=== PATIENT | male | born 1995 | race Caucasian/White ===

== ENCOUNTER 2018-08-16 03:35 | Inpatient (IN) ==
[2018-08-16] MEDS ORDERED: LORazepam 1 MG TAB SL STA (04:00)
--- NOTE | 2018-08-16 04:07 | Emergency Department Note ---
ED Provider Note Name: Heath Hoang Age: 23 M Arrives Via: Police Informant: Pt, Police CC: Suicidal Ideation HPI: 23 male arrives for evaluation of suicidal ideation. Patient with several months/years of depression/anxiety. Notes things have worsened due to school issues and failing classes. He was to have a test this Tuesday, which if he does not pass he will not be able to graduate in his major. He is sure the test will go poorly. He has been thinking over various ways of killing himself this evening. Stabbing, walking in to traffic or taking pills kept running through his mind. He was afraid to get out of his bed for fear he may kill himself. He called [facility] and told this to them. Arrived with police after discussing at length with them. He denies attempt at harming self. Admits having vague thoughts for years regarding suicide. Started on Wellbutrin last month which he thinks has improved his mood overall, but he still periodically has deep bouts of sadness. Denies recent ETOH, drug nor other substance use. He has taken no medications this evening. Nothing makes symptoms better nor worse. Denies medical issues today. ROS: See above HPI for pertinent positives & negatives. A total of 10 systems reviewed and were otherwise negative. Past Medical History: Depression Past Surgical History: [place] Teeth, Colonoscopy Family History: Distant cousin committed suicide. Denies knowing further family history Social History: Occasional ETOH/Marijuana, Denies drug/smoking use otherwise. Student. From [employer]. Home Medications: Wellbutrin Allergies Azithromycin Physical: Vitals: BP 154/94, P 82, R 20, T 36.5, O2 99% Exam: GENERAL: Patient is sad appearing and in mild distress. Crying periodically EYES: No scleral icterus, unremarkable pupils. ENT: Mucous membranes moist, no nasal congestion. NECK: No masses appreciated, no meningismus, trachea is midline. RESPIRATORY: No dyspnea. Clear to auscultation and equal bilaterally. No wheeze, no rhonchi. CARDIOVASCULAR: Regular rate and rhythm. No murmurs, rubs, gallops appreciated. GASTROINTESTINAL: Abdomen soft, non-tender, no peritonitis. Bowel sounds positive. No masses appreciated. BACK: No midline tenderness, no CVA tenderness EXTREMITIES: Normal motion all extremities, no cyanosis, no edema. NEUROLOGIC: Alert and oriented, no acute motor or sensory deficits, no focal weakness, cranial nerves grossly intact. SKIN: No rash, no jaundice, no diaphoresis. PSYCH: Sad, depressed, crying. Admits suicidal ideation with plan ED Course: Prior Medical Record, Triage/Nursing Notes, Medications, Allergies reviewed by Me Vital Signs: reviewed and remarkable for HTN Labs: Reviewed and remarkable for wnl mental health clearance labs Interventions: None Imaging: None EKG: None Consults: Mental Health Case Management agree with need for inpatient treatment Blood pressure: Normal. No Referral necessary Disposition: Admission to [address] [place] [address]. Differentials: Mood Disorder, Overdose, Infectious, Electrolyte Abnormality, Cardiac, Hepatic, Endocrine, Toxicologic, Neurologic, amongst other pathologies entertained. Medical Decision Makin yr old male clearly very depressed with multiple exacerbating factors in his life currently. Opened up considerably to Eliana from case management about his history as well. He clearly is very high risk suicide attempt. He is currently willing for inpatient treatment which I think is very necessary. He is medically clear. He freely signed 201 admission paperwork and thus I have denied 302 on reason he is actively participating in his care and willing to admit himself. Accepted to [address] [place] [address] for inpatient psychiatric treatment. Impression: Depression Suicidal Ideation Alex Small MD Impression & Plan Depression, Suicidal ideation Past Med/Surg History Social History Preferred Language: German Feels Safe at Home: Yes Smoking Status: Never smoker Results & Data Vital Signs Vital Signs - 24 hr 08/16/18 03:38 08/16/18 05:22 Temperature 36.5 C Temperature Source Oral Sepsis Recent Fever Within 48 Hours No Sepsis New/Unexplained Change in Mental Status No Sepsis Action Taken by Nursing No Action Required Pulse Rate 82 Pulse Rate [Finger] 64 Respiratory Rate 20 18 Blood Pressure 154/94 H Blood Pressure [Right Arm] 140/81 Blood Pressure Mean 114 Blood Pressure Mean [Right Arm] 100 Pulse Oximetry 99 99 Oxygen Delivery Method Room Air Laboratory Data Result diagrams: 08/16/18 04:06 08/16/18 04:06 Lab Results 08/16/18 08/16/18 08/16/18 Range/Units 03:47 03:47 04:06 WBC 5.51 (4.8-10.8) K/uL RBC 4.62 L (4.7-6.1) M/uL Hgb 14.6 (14.0-18.0) g/dL Hct 41.6 L (42-52) % MCV 90.0 (80-100) fL MCH 31.6 (25-34) pg MCHC 35.1 (32-36) g/dL RDW Std Deviation 38.6 (36.4-46.3) fL RDW Coeff of Brynn 11.8 (11.5-14.5) % Plt Count 227 (130-400) K/uL MPV 9.7 (7.4-10.4) fL Immature Gran % (Auto) 0.0 % Neut % (Auto) 55.4 % Lymph % (Auto) 26.1 % Taylor % (Auto) 15.4 % Eos % (Auto) 2.7 % Baso % (Auto) 0.4 % Immature Gran # (Auto) 0.00 (0.00-0.02) K/uL Neut # (Auto) 3.05 (1.4-6.5) K/uL Lymph # (Auto) 1.44 (1.2-3.4) K/uL Taylor # (Auto) 0.85 H (0.11-0.59) K/uL Eos # (Auto) 0.15 (0-0.5) K/uL Baso # (Auto) 0.02 (0-0.2) K/uL Sodium (136-145) mmol/L Potassium (3.5-5.1) mmol/L Chloride (98-107) mmol/L Carbon Dioxide (21-32) mmol/L Anion Gap (3-11) BUN (7-18) mg/dl Creatinine (0.6-1.4) mg/dl Est Cr Clr Drug Dosing ml/min Est GFR ( Amer) Est GFR (Non-Af Amer) BUN/Creatinine Ratio (10-20) Glucose (70-99) mg/dl Calcium (8.5-10.1) mg/dl Total Bilirubin (0.2-1) mg/dl AST (15-37) U/L ALT (12-78) U/L Alkaline Phosphatase (45-117) U/L Total Protein (6.4-8.2) gm/dl Albumin (3.4-5.0) gm/dl Globulin (2.5-4.0) gm/dl Albumin/Globulin Ratio (0.9-2) TSH (0.300-4.500) uIu/ml Urine Color Yellow Urine Appearance Clear (Clear) Urine pH 5.5 (4.5-7.5) Ur Specific [place] 1.023 (1.000-1.030) Urine Protein 1+ H (Negative) Urine Glucose (UA) Negative (Negative) Urine Ketones Negative (Negative) Urine Blood Negative (Negative) Urine Nitrite Negative (Negative) Urine Bilirubin Negative (Negative) Urine Urobilinogen Negative (Negative) Ur Leukocyte Esterase 1+ H (Negative) Urine WBC (Auto) >30 H (0-5) /hpf Urine RBC (Auto) 0-4 (0-4) /hpf U Hyaline Cast (Auto) 0 (0-5) /lpf U Epithel Cells (Auto) 0-5 (0-5) /lpf Urine Bacteria (Auto) 1+ H (Negative) Urine Mucus Present A (None Prsent) Urine Sperm Present A (None Prsent) Salicylates (2.8-20) mg/dl Urine Opiates Screen Neg (Neg) Ur Methadone, Qual Neg (Neg) Acetaminophen (10-30) ug/ml Urine Barbiturates Neg (Neg) Ur Phencyclidine (PCP) Neg (Neg) U Amphetamin/Meth Scrn Neg (Neg) MDMA (Ecstasy) Screen Pos H (Neg) U Benzodiazepines Scrn Neg (Neg) Ur Cocaine Metabolite Neg (Neg) U Marijuana (THC) Screen Neg (Neg) Ethyl Alcohol mg/dL (0-3) mg/dl 08/16/18 08/16/18 08/16/18 Range/Units 04:06 04:06 04:06 WBC (4.8-10.8) K/uL RBC (4.7-6.1) M/uL Hgb (14.0-18.0) g/dL Hct (42-52) % MCV (80-100) fL MCH (25-34) pg MCHC (32-36) g/dL RDW Std Deviation (36.4-46.3) fL RDW Coeff of Brynn (11.5-14.5) % Plt Count (130-400) K/uL MPV (7.4-10.4) fL Immature Gran % (Auto) % Neut % (Auto) % Lymph % (Auto) % Taylor % (Auto) % Eos % (Auto) % Baso % (Auto) % Immature Gran # (Auto) (0.00-0.02) K/uL Neut # (Auto) (1.4-6.5) K/uL Lymph # (Auto) (1.2-3.4) K/uL Taylor # (Auto) (0.11-0.59) K/uL Eos # (Auto) (0-0.5) K/uL Baso # (Auto) (0-0.2) K/uL Sodium 141 (136-145) mmol/L Potassium 3.7 (3.5-5.1) mmol/L Chloride 107 (98-107) mmol/L Carbon Dioxide 26 (21-32) mmol/L Anion Gap 8.0 (3-11) BUN 12 (7-18) mg/dl Creatinine 1.21 (0.6-1.4) mg/dl Est Cr Clr Drug Dosing 122.9 ml/min Est GFR ( Amer) 97.9 Est GFR (Non-Af Amer) 84.5 BUN/Creatinine Ratio 9.5 L (10-20) Glucose 96 (70-99) mg/dl Calcium 9.2 (8.5-10.1) mg/dl Total Bilirubin 0.4 (0.2-1) mg/dl AST 14 L (15-37) U/L ALT 34 (12-78) U/L Alkaline Phosphatase 65 (45-117) U/L Total Protein 7.6 (6.4-8.2) gm/dl Albumin 4.0 (3.4-5.0) gm/dl Globulin 3.6 (2.5-4.0) gm/dl Albumin/Globulin Ratio 1.1 (0.9-2) TSH 4.270 (0.300-4.500) uIu/ml Urine Color Urine Appearance (Clear) Urine pH (4.5-7.5) Ur Specific [place] (1.000-1.030) Urine Protein (Negative) Urine Glucose (UA) (Negative) Urine Ketones (Negative) Urine Blood (Negative) Urine Nitrite (Negative) Urine Bilirubin (Negative) Urine Urobilinogen (Negative) Ur Leukocyte Esterase (Negative) Urine WBC (Auto) (0-5) /hpf Urine RBC (Auto) (0-4) /hpf U Hyaline Cast (Auto) (0-5) /lpf U Epithel Cells (Auto) (0-5) /lpf Urine Bacteria (Auto) (Negative) Urine Mucus (None Prsent) Urine Sperm (None Prsent) Salicylates < 1.7 L (2.8-20) mg/dl Urine Opiates Screen (Neg) Ur Methadone, Qual (Neg) Acetaminophen < 2 L (10-30) ug/ml Urine Barbiturates (Neg) Ur Phencyclidine (PCP) (Neg) U Amphetamin/Meth Scrn (Neg) MDMA (Ecstasy) Screen (Neg) U Benzodiazepines Scrn (Neg) Ur Cocaine Metabolite (Neg) U Marijuana (THC) Screen (Neg) Ethyl Alcohol mg/dL < 3.0 (0-3) mg/dl Administered Medications Discontinued Medications Lorazepam (Ativan) 1 mg SL NOW STA Stop: 08/16/18 04:01 Last Admin: 08/16/18 04:10 Dose: 1 mg Documented by: [id number] Discharge Plan Visit Data Chief Complaint: Mental Health Evaluation Stated Complaint: SUICIDAL ED Provider: Alex Small Discharge Problem: Depression, Suicidal ideation Discharge Problem: Depression Qualifiers: Depression Type: major depressive disorder Major depression recurrence: recurrent Active/Remission status: currently active Major depression episode severity: severe Psychotic features: without psychotic features Qualified Code(s): F33.2 - Major depressive disorder, recurrent severe without psychotic features
[2018-08-16 04:12] LABS: Appearance Urine Clear (Clear); Bilirubin Urine Negative (Negative); Blood Urine Negative (Negative); Color Urine Yellow; Epithelial Cell Urine Auto 0-5 /lpf (0-5); Glucose Urine UA Negative (Negative); Ketones Urine Negative (Negative); Leukocyte Esterase Urine 1+ (Negative); Nitrite Urine Negative (Negative); Protein Urine 1+ (Negative); RBC Urine Automated 0-4 /hpf (0-4); Specific Gravity Urine 1.023 (1.000-1.030); Urobilinogen Urine Negative (Negative); WBC Urine Automated >30 /hpf (0-5); pH Urine 5.5 (4.5-7.5)
[2018-08-16 04:21] LABS: Basophils # (auto) 0.02 K/uL (0-0.2); Basophils % (auto) 0.4 %; Eosinophils # (auto) 0.15 K/uL (0-0.5); Eosinophils % (auto) 2.7 %; Hematocrit (blood only) 41.6 % (42-52); Hemoglobin 14.6 g/dL (14.0-18.0); Lymphocytes # (auto) 1.44 K/uL (1.2-3.4); Lymphocytes % (auto) 26.1 %; Mean Corpuscular Hgb Conc 35.1 g/dL (32-36); Mean Platelet Volume 9.7 fL (7.4-10.4); Monocytes # (auto) 0.85 K/uL (0.11-0.59); Monocytes % (auto) 15.4 %; Neutrophils # (auto) 3.05 K/uL (1.4-6.5); Neutrophils % (auto) 55.4 %; Platelet Count 227 K/uL (130-400); RDW Coefficient of Variation 11.8 % (11.5-14.5); RDW Standard Deviation 38.6 fL (36.4-46.3); Red Blood Count 4.62 M/uL (4.7-6.1); White Blood Count 5.51 K/uL (4.8-10.8)
[2018-08-16 04:34] LABS: Sperm Urine Present (None Prsent)
[2018-08-16 04:35] LABS: Mucus Urine Present (None Prsent)
[2018-08-16 04:37] LABS: Amphetamines+Metham, Urine Neg (Neg); Bacteria Urine Automated 1+ (Negative); Barbiturates, Urine Neg (Neg); Benzodiazepine, Urine Neg (Neg); Cast Urine Automated 0 /lpf (0-5); Cocaine, Urine Neg (Neg); MDMA (Ecstacy), Urine Pos (Neg); Methadone, Urine Neg (Neg); Opiate, Urine Neg (Neg); Phencyclidine, Urine Neg (Neg)
[2018-08-16 04:44] LABS: BUN Creatinine Ratio 9.5 (10-20); Calcium 9.2 mg/dl (8.5-10.1); Creatinine Clr Calc Pharmacy 122.9 ml/min; Est GFR (African American) 97.9; Est GFR (Non-African American) 84.5; Potassium 3.7 mmol/L (3.5-5.1)
[2018-08-16 04:47] LABS: Acetaminophen < 2 ug/ml (10-30); Salicylate < 1.7 mg/dl (2.8-20)
[2018-08-16 04:55] LABS: Albumin Globulin Ratio 1.1 (0.9-2); Bilirubin,Total 0.4 mg/dl (0.2-1); Globulin 3.6 gm/dl (2.5-4.0); Total Protein 7.6 gm/dl (6.4-8.2)
[2018-08-16] MEDS ORDERED: BISMUTH SUBSALICYLATE PER ML OMNICELL CHARGE PO PRN (06:30)
[2018-08-16] MEDS ORDERED: SODIUM CHLORIDE 0.65% NA SOLN 45 ML (OCEAN) PRN (06:30)
[2018-08-16] MEDS ORDERED: ACETAMINOPHEN 325 MG TAB PO PRN (06:30)
[2018-08-16] MEDS ORDERED: MAGNESIUM HYDROXIDE SUSP 30 ML UDC PO PRN (06:30)
[2018-08-16] MEDS ORDERED: ALUMINUM/MAGNESIUM SUSP 30 ML UDC PO PRN (06:30)
[2018-08-16] MEDS ORDERED: buPROPion HCl 100 MG TABLET PO SCH (09:00)
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
[2018-08-16] MEDS: SERTRALINE HCL 50 MG TABLET PO SCH (13:52)
[2018-08-17] MEDS: BuPROPion XL 300 MG TABCR PO SCH (08:59)
[2018-08-17] MEDS: SERTRALINE HCL 50 MG TABLET PO SCH (08:59)
--- NOTE | 2018-08-17 19:08 | Psychiatric Progress Note ---
Date of Service August 17, 2018 Impression / Recommendations (1) Suicidal ideation: 08/16 -Continue inpatient treatment on a voluntary status. -Every 15 minute checks for safety. -Attend and participate in groups and therapy. Work on healthy coping skills and discharge safety plan. (2) Depression: 08/16 - Education provided re: diagnosis and recommended treatment, including medications and therapy. Continue bupropion 300mg daily, and add SSRI- sertrali ne 50mg daily - to target depression and anxiety. Reviewed risks, benefits and potential side effects. - Encourage family meeting - would be good to talk with mother as she has not been supportive of him getting treatment and he has been paying out of pocket for medications and therapy so that she would not have to pay for them, as he believes she would be angry about that. He fears she will be angry at him for being hospitalized, and may benefit form a meeting to discuss this with her with staff present. Long standing difficult relationship with her. Consider meeting with friend? He is not comfortable with disclosing his struggles to his friends, although does have good friends. - Coordinate with outpatient psychiatrist Dr. Sarah and therapist at [facility]. Recommend more frequent therapy - only scheduled every 3 weeks due to availability. - Explore ways to expand support network. 08/17 - encouraging family meeting with mother that pt is now seeming open to - need to further address roommate's gun to ensure if fully secured from pt's access -maintained Meds unchanged ,with room to raise Zoloft further as appropriate Inventory Assets Strengths: Willing for treatment, stable housing Needs: increased supports, safety plan Risk Factors Assessment Male: Yes : Yes Do You Have Access To A Gun?: No Health Problems: No Mental Health Diagnoses: Yes Substance Use Disorders: No Previous Attempt: No Family History of Suicide: No Previous Psychiatric Hospitalization: No Hopelessness: Yes Smoker: No Protective Factors Assessment : No Responsible for Young Children: No Employed: Yes Stable Relationships: Yes Supportive Family: No Good Rapport with Provider: Yes Interval History Chief Complaint "feelign better as I made a bunch of phone calls today". Review of Systems Sleep Information Total Hours of Sleep: 6 Sleep Comments: pt VIK @0500 and thereafter. pt remained in his room all shift. pt on q-15 minute checks Meal Information Percent Meal Consumed - Breakfast: 100 Percent Meal Consumed - Lunch: 90 Percent Meal Consumed - Dinner: 90 Nutrition Comment: per meal record Subjective Subjective Patient was seen & assessed and interval progress reviewed with nursing. Pt shared how made a bunch of phone calls today and left messages with peers and spoke to other peers, roommate brought some belonging and he got to speak to roommate and felt his concern and support. Pt had a better then expected phone call last evening with his mother and shared show she was notably less activated then he expected and in fact inquired if he wanted her to come to hospital instead of just charging here. He is more open to a family meeting (preferring by phone) with her now that he had that experience and after reviewing with grant writer. Pt had Si last night into this morning but did not have this afternoon. He feels he is tolerating his Meds and he feels they are likely alleviating factors. He has just started therapy at [facility] and is seeking more frequent therapy appts then has arranged to date, waning weekly if possible. He denied HI, He is feeling some improved sense of hope. he was weary about group therapy but after some groups here on the unit views group sessions more p ositively. he denied irritability or agitation. some insomnia last night. He thinks he would be ready for discharge in perhaps 2-3 days from now Physical Exam Psychiatric Orientation: alert, oriented x 3 and cooperative Apperance: appropriately dressed, appropriately groomed and appeared stated age Eye Contact: good eye contact Motor Behavior: steady gait and station and no abnormal motor movements decreased latency of speech with mild pressure to speech in anxious manner Affect: mood congruent with affect mood improving Thought Process: linear/logical thought process Thought Content: reality based without delusions Suicidal Thoughts: denies suicidal thoughts (this aftenroon but were present this morning and last night ) Homicidal Thoughts: denies homicidal thoughts Hallucinations: no auditory hallucinations and no visual hallucinations Cognition: recent memory grossly intact, remote memory grossly intact, attention grossly intact and language grossly intact Estimated Intelligence: consistent with education level Insight: good insight Judgement: good judgement Vital Signs (Past 24 Hours) Last Vital Signs Temp 36.6 C 08/17/18 06:44 Pulse 71 08/17/18 06:45 Resp 18 08/17/18 06:44 BP 134/81 08/17/18 06:45 Pulse Ox 99 08/16/18 05:22 Results & Data Current Inpatient Medications Current Inpatient Medications: Current Inpatient Medications Acetaminophen (Tylenol) 650 mg PO Q4H PRN PRN Reason: Headache or Minor Fever Stop: 09/15/18 06:29 Al Hydrox/Mg Hydrox/Simethicone (Maalox) 30 ml PO Q4H PRN PRN Reason: GI Upset Stop: 09/15/18 06:29 Bismuth Subsalicylate (Kaopectate) 15 ml PO PRN PRN PRN Reason: Loose Stool Stop: 09/15/18 06:29 Bupropion HCl (Wellbutrin-Xl) 300 mg PO QAM TMAICA Stop: 09/16/18 08:59 Last Admin: 08/17/18 08:59 Dose: 300 mg Documented by: Hydroxyzine HCl (Vistaril) 50 mg PO HSZ PRN PRN Reason: Insomnia Stop: 09/15/18 06:29 Hydroxyzine HCl (Vistaril) 25 mg PO Q4H PRN PRN Reason: Anxiety Stop: 09/15/18 06:29 Magnesium Hydroxide (Milk Of Magnesia) 30 ml PO DAILY PRN PRN Reason: Heartburn Stop: 09/15/18 06:29 Sertraline HCl (Zoloft) 50 mg PO QAM TAMICA Stop: 09/15/18 12:29 Last Admin: 08/17/18 08:59 Dose: 50 mg Documented by: Sodium Chloride ([place] Nasal) 1 - 2 sprays NA PRN PRN PRN Reason: Nasal Dryness/Congestion Stop: 09/15/18 06:29 Mental Health & Subst Abuse Tx Therapist Name of Therapist: [facility] Date of Therapist Appointment: 08/23/18 Merchandise Marker Name of Merchandise Marker: None Post Discharge Appointments Primary Care Physician Name Of Family Doctor: [facility] CPT Code CPT Code 58117 (1) Depression Active/Remission status: currently active Depression Type: major depressive disorder Major depression episode severity: severe Major depression recurrence : recurrent Psychotic features: without psychotic features Qualified Code(s): F33.2 - Major depressive disorder, recurrent severe without psychotic features
[2018-08-18] MEDS: BuPROPion XL 300 MG TABCR PO SCH (09:50)
[2018-08-18] MEDS: SERTRALINE HCL 50 MG TABLET PO SCH (09:51)
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
[2018-08-19] MEDS ORDERED: SERTRALINE HCL 50 MG TABLET PO SCH (09:00)
== END 2018-08-18 16:00 | disposition home or self-care (01) | DRG 885 ==
LOC: ED 03:35 → 3S 06:30
DX: Z88.1 Allergy status to other antibiotic agents; F33.2 Major depressive disorder, recurrent severe without psychotic features; Z62.810 Personal history of physical and sexual abuse in childhood; R45.851 Suicidal ideations; Z79.899 Other long term (current) drug therapy

== ENCOUNTER 2022-04-06 02:21 | Inpatient (IN) ==
--- NOTE | 2022-04-06 02:56 | Emergency Department Note ---
History of Present Illness General Chief complaint: Mental Health Evaluation Stated complaint: MHE Time Seen by Provider: 04/06/22 02:39 History of Present Illness Maximum Pain Intensity: 4 27-year-old male with a history of bipolar depression states that he feels depressed he wants to run in front of cars. Patient states he would like to sign himself in voluntarily. Patient denies any ingestions or alcohol. Patient denies homicidal ideations. Patient states that he is having problems with his schoolwork. Patient has prior history of suicidal ideation but no suicidal attempt. Home Medications Medication Instructions Recorded Confirmed Type aripiprazole 15 mg tablet 15 mg PO HS 04/06/22 04/06/22 History lamotrigine 150 mg tablet 150 mg PO QAM 04/06/22 04/06/22 History Allergies Allergy/AdvReac Type Severity Reaction Status Date / Time azithromycin [From Zithromax] Allergy Intermediate Hives Verified 04/06/22 02:43 Past Med/Surg History Medical History (Updated 04/06/22 @ 04:33 by Naresh Padilla DO) Anxiety Depression Family History Father Pulmonary embolism Other Family history of blood clots Social History Smoking Status: Never smoker Hx Alcohol Use: No Hx Substance Use: No Preferred Language: Irish Communication Ability: Effective Criminal Psychologist Required: No Beliefs That Will Affect Care: None Feels Safe at Home: Yes Gender Identity: Male Assistive Devices: None Review of Systems A total of 10 systems reviewed and were otherwise negative Psychiatric: + suicidal ideation Physical Exam Vital Signs Vital Signs - 24 hr 04/06/22 02:25 04/06/22 04:41 Temperature 36.5 C Temperature Source Temporal Artery Scan Pulse Rate 63 Pulse Rate [Finger] 71 Respiratory Rate 16 17 Respiratory Effort / Characteristics Non-Labored Spontaneous Respiratory Depth Normal Blood Pressure 162/96 H Blood Pressure [Right Arm] 157/84 H Blood Pressure Mean 118 Blood Pressure Mean [Right Arm] 108 Blood Pressure Position Sitting Pulse Oximetry 97 97 Oxygen Delivery Method Room Air Room Air Sepsis Recent Fever Within 48 Hours No Sepsis New/Unexplained Change in Mental Status N/A Sepsis Action Taken by Nursing No Action Required GENERAL: Patient is awake alert in no acute distress patient is resting comfortably and showing no signs of anxiety EYES: The conjunctivae are clear. The pupils are round and reactive. EARS, NOSE, MOUTH AND THROAT: The nose is without any evidence of any deformity. Mucous membranes are moist. Tongue is midline. NECK: The neck is nontender and supple. RESPIRATORY: Normal respiratory effort is noted there is no evidence of wheezing rhonchi or rales CARDIOVASCULAR: Regular rate and rhythm noted there no murmurs rubs or gallops normal S1 normal S2. GASTROINTESTINAL: The abdomen is soft. Abdomen is nontender. BACK: No midline tenderness or or step-off noted range of motion in flexion extension as well as rotation no signs of muscle spasm noted MUSCULOSKELETAL/EXTREMITIES: There is no evidence of gross deformity full range of motion is noted in the hips and shoulders. SKIN: There is no obvious evidence of any rash. There are no petechiae, pallor or cyanosis noted. NEUROLOGIC: Patient is awake alert and oriented x3 strength is symmetric Psychiatric: depressed, suicidal ideation Course Reevaluation(s) Reevaluation #1: Patient is resting in no distress is medically cleared for psychiatric evaluation. Patient was accepted by [facility] Time: 05:00 Medical Decision Making Medical Records Attestation: I reviewed the patient's medical records. Home Medications Current Medication List: was personally reviewed by me Laboratory Data Attestation: I reviewed the patient's lab results. 04/06/22 02:43 04/06/22 02:43 Lab Results 04/06/22 04/06/22/ Range/Units 02:43 02:43 02:43 WBC 6.83 (4.8-10.8) K/ul RBC 5.00 (4.70-6.10) M/uL Hgb 15.5 (14.0-18.0) g/dl Hct 44.3 (42.0-52.0) % MCV 88.6 (80.0-100.0) fL MCH 31.0 (25.0-34.0) pg MCHC 35.0 (32.0-36.0) g/dL RDW Std Deviation 38.5 (36.4-46.3) fL RDW Coeff of Brynn 11.9 (11.5-14.5) % Plt Count 264 (130-400) K/uL MPV 9.6 (9.4-12.4) fL Immature Gran % (Auto) 0.1 % Neut % (Auto) 56.6 % Lymph % (Auto) 27.2 % [place] % (Auto) 12.7 % Eos % (Auto) 2.8 % Baso % (Auto) 0.6 % Neut # (Auto) 3.86 (1.40-6.50) K/uL Lymph # (Auto) 1.86 (1.2-3.4) K/uL [place] # (Auto) 0.87 H (0.11-0.59) K/uL Eos # (Auto) 0.19 (0-0.50) K/uL Baso # (Auto) 0.04 (0-0.2) K/uL Immature Gran # (Auto) 0.01 (0.01-0.20) K/uL Absolute Nucleated RBC 0.02 (0-0.12) K/uL Nucleated RBC % (auto) 0.3 % Sodium 138 (136-145) mmol/L Potassium 4.2 (3.5-5.1) mmol/L Chloride 105 (98-107) mmol/L Carbon Dioxide 26 (21-32) mmol/L Anion Gap 7 (3-11) BUN 16 (6-23) mg/dl Creatinine 1.10 (0.6-1.4) mg/dl Est Cr Clr Drug Dosing 139.1 ml/min Est GFR ( Amer) 106.8 ml/min Est GFR (Non-Af Amer) 92.2 ml/min BUN/Creatinine Ratio 14.5 (10-20) Glucose 106 H (70-99(Fasting)) mg/dl Calcium 9.9 (8.5-10.1) mg/dl Total Bilirubin 0.4 (0.2-1.0) mg/dl AST 35 (13-39) U/L ALT 84 H (7-52) U/L Alkaline Phosphatase 62 (34-104) U/L Total Protein 7.7 (6.0-8.3) gm/dl Albumin 4.6 (3.4-5.0) gm/dl Globulin 3.1 (2.5-4.0) gm/dl Albumin/Globulin Ratio 1.5 (0.9-2) TSH 2.242 (0.300-4.500) uIu/ml Urine Color Urine Appearance (Clear) Urine pH (4.5-7.5) Ur Specific Crystal (1.000-1.030) Urine Protein (Negative) Urine Glucose (UA) (Negative) Urine Ketones (Negative) Urine Blood (Negative) Urine Nitrite (Negative) Urine Bilirubin (Negative) Urine Urobilinogen (Negative) Ur Leukocyte Esterase (Negative) Salicylates (3.0-30) mg/dl Urine Opiates Screen (Neg) Ur Methadone, Qual (Neg) Acetaminophen (10-30) ug/ml Urine Barbiturates (Neg) Ur Phencyclidine (PCP) (Neg) U Amphetamin/Meth Scrn (Neg) MDMA (Ecstasy) Screen (Neg) U Benzodiazepines Scrn (Neg) Ur Cocaine Metabolite (Neg) U Marijuana (THC) Screen (Neg) Ethyl Alcohol mg/dL (<10.0) mg/dl SARS-CoV-2, RNA, NAAT (NEGATIVE) 04/06/22 04/06/22 04/06/22 Range/Units 02:43 02:43 02:46 WBC (4.8-10.8) K/ul RBC (4.70-6.10) M/uL Hgb (14.0-18.0) g/dl Hct (42.0-52.0) % MCV (80.0-100.0) fL MCH (25.0-34.0) pg MCHC (32.0-36.0) g/dL RDW Std Deviation (36.4-46.3) fL RDW Coeff of Brynn (11.5-14.5) % Plt Count (130-400) K/uL MPV (9.4-12.4) fL Immature Gran % (Auto) % Neut % (Auto) % Lymph % (Auto) % [place] % (Auto) % Eos % (Auto) % Baso % (Auto) % Neut # (Auto) (1.40-6.50) K/uL Lymph # (Auto) (1.2-3.4) K/uL [place] # (Auto) (0.11-0.59) K/uL Eos # (Auto) (0-0.50) K/uL Baso # (Auto) (0-0.2) K/uL Immature Gran # (Auto) (0.01-0.20) K/uL Absolute Nucleated RBC (0-0.12) K/uL Nucleated RBC % (auto) % Sodium (136-145) mmol/L Potassium (3.5-5.1) mmol/L Chloride (98-107) mmol/L Carbon Dioxide (21-32) mmol/L Anion Gap (3-11) BUN (6-23) mg/dl Creatinine (0.6-1.4) mg/dl Est Cr Clr Drug Dosing ml/min Est GFR ( Amer) ml/min Est GFR (Non-Af Amer) ml/min BUN/Creatinine Ratio (10-20) Glucose (70-99(Fasting)) mg/dl Calcium (8.5-10.1) mg/dl Total Bilirubin (0.2-1.0) mg/dl AST (13-39) U/L ALT (7-52) U/L Alkaline Phosphatase (34-104) U/L Total Protein (6.0-8.3) gm/dl Albumin (3.4-5.0) gm/dl Globulin (2.5-4.0) gm/dl Albumin/Globulin Ratio (0.9-2) TSH (0.300-4.500) uIu/ml Urine Color Urine Appearance (Clear) Urine pH (4.5-7.5) Ur Specific Crystal (1.000-1.030) Urine Protein (Negative) Urine Glucose (UA) (Negative) Urine Ketones (Negative) Urine Blood (Negative) Urine Nitrite (Negative) Urine Bilirubin (Negative) Urine Urobilinogen (Negative) Ur Leukocyte Esterase (Negative) Salicylates < 3.0 L (3.0-30) mg/dl Urine Opiates Screen (Neg) Ur Methadone, Qual (Neg) Acetaminophen < 3 L (10-30) ug/ml Urine Barbiturates (Neg) Ur Phencyclidine (PCP) (Neg) U Amphetamin/Meth Scrn (Neg) MDMA (Ecstasy) Screen (Neg) U Benzodiazepines Scrn (Neg) Ur Cocaine Metabolite (Neg) U Marijuana (THC) Screen (Neg) Ethyl Alcohol mg/dL < 10.0 (<10.0) mg/dl SARS-CoV-2, RNA, NAAT NEGATIVE (NEGATIVE) 04/06/22 04/06/22 Range/Units 03:03 03:03 WBC (4.8-10.8) K/ul RBC (4.70-6.10) M/uL Hgb (14.0-18.0) g/dl Hct (42.0-52.0) % MCV (80.0-100.0) fL MCH (25.0-34.0) pg MCHC (32.0-36.0) g/dL RDW Std Deviation (36.4-46.3) fL RDW Coeff of Brynn (11.5-14.5) % Plt Count (130-400) K/uL MPV (9.4-12.4) fL Immature Gran % (Auto) % Neut % (Auto) % Lymph % (Auto) % [place] % (Auto) % Eos % (Auto) % Baso % (Auto) % Neut # (Auto) (1.40-6.50) K/uL Lymph # (Auto) (1.2-3.4) K/uL [place] # (Auto) (0.11-0.59) K/uL Eos # (Auto) (0-0.50) K/uL Baso # (Auto) (0-0.2) K/uL Immature Gran # (Auto) (0.01-0.20) K/uL Absolute Nucleated RBC (0-0.12) K/uL Nucleated RBC % (auto) % Sodium (136-145) mmol/L Potassium (3.5-5.1) mmol/L Chloride (98-107) mmol/L Carbon Dioxide (21-32) mmol/L Anion Gap (3-11) BUN (6-23) mg/dl Creatinine (0.6-1.4) mg/dl Est Cr Clr Drug Dosing ml/min Est GFR ( Amer) ml/min Est GFR (Non-Af Amer) ml/min BUN/Creatinine Ratio (10-20) Glucose (70-99(Fasting)) mg/dl Calcium (8.5-10.1) mg/dl Total Bilirubin (0.2-1.0) mg/dl AST (13-39) U/L ALT (7-52) U/L Alkaline Phosphatase (34-104) U/L Total Protein (6.0-8.3) gm/dl Albumin (3.4-5.0) gm/dl Globulin (2.5-4.0) gm/dl Albumin/Globulin Ratio (0.9-2) TSH (0.300-4.500) uIu/ml Urine Color Yellow Urine Appearance Clear (Clear) Urine pH 6.0 (4.5-7.5) Ur Specific Crystal 1.027 (1.000-1.030) Urine Protein Negative (Negative) Urine Glucose (UA) Negative (Negative) Urine Ketones Trace H (Negative) Urine Blood Negative (Negative) Urine Nitrite Negative (Negative) Urine Bilirubin Negative (Negative) Urine Urobilinogen Negative (Negative) Ur Leukocyte Esterase Negative (Negative) Salicylates (3.0-30) mg/dl Urine Opiates Screen Neg (Neg) Ur Methadone, Qual Neg (Neg) Acetaminophen (10-30) ug/ml Urine Barbiturates Neg (Neg) Ur Phencyclidine (PCP) Neg (Neg) U Amphetamin/Meth Scrn Neg (Neg) MDMA (Ecstasy) Screen Neg (Neg) U Benzodiazepines Scrn Neg (Neg) Ur Cocaine Metabolite Neg (Neg) U Marijuana (THC) Screen Neg (Neg) Ethyl Alcohol mg/dL (<10.0) mg/dl SARS-CoV-2, RNA, NAAT (NEGATIVE) MDM Narrative Medical decision making differential diagnosis includes depression, anxiety, bipolar, suicidal ideation Plan is to check labs, clear for psychiatric evaluation, case management involvement Impression & Plan Depression, Anxiety, Depression with suicidal ideation Discharge Plan Visit Data Chief Complaint: Mental Health Evaluation Stated Complaint: MHE ED Provider: Naresh Padilla Discharge Problem: Depression, Anxiety, Depression with suicidal ideation Patient Disposition: Admitted As Inpatient Forms Stand Alone Forms: My [facility], Suicide Prevention Resources Prescriptions Prescriptions: No Action lamotrigine 150 mg tablet 150 mg PO QAM Rx Instructions: PER PT "TAKE QAM", PER EXT MED HX BID. aripiprazole 15 mg tablet 15 mg PO HS Referrals Ref[facility]: [facility] [Primary Care Provider[facility] -
[2022-04-06 02:59] LABS: Basophils # (auto) 0.04 K/uL (0-0.2); Basophils % (auto) 0.6 %; Eosinophils # (auto) 0.19 K/uL (0-0.50); Eosinophils % (auto) 2.8 %; Hematocrit (blood only) 44.3 % (42.0-52.0); Hemoglobin 15.5 g/dl (14.0-18.0); Immature Granulocytes # (auto) 0.01 K/uL (0.01-0.20); Immature Granulocytes % (auto) 0.1 %; Lymphocytes # (auto) 1.86 K/uL (1.2-3.4); Lymphocytes % (auto) 27.2 %; Mean Corpuscular Volume 88.6 fL (80.0-100.0); Mean Platelet Volume 9.6 fL (9.4-12.4); Monocytes # (auto) 0.87 K/uL (0.11-0.59); Monocytes % (auto) 12.7 %; Neutrophils # (auto) 3.86 K/uL (1.40-6.50); Neutrophils % (auto) 56.6 %; Nucleated RBC # (auto) 0.02 K/uL (0-0.12); Nucleated RBC % (auto) 0.3 %; Platelet Count 264 K/uL (130-400); RDW Coefficient of Variation 11.9 % (11.5-14.5); RDW Standard Deviation 38.5 fL (36.4-46.3); White Blood Count 6.83 K/ul (4.8-10.8)
[2022-04-06 03:15] LABS: Albumin Globulin Ratio 1.5 (0.9-2); Albumin Level 4.6 gm/dl (3.4-5.0); BUN Creatinine Ratio 14.5 (10-20); Bilirubin,Total 0.4 mg/dl (0.2-1.0); Calcium 9.9 mg/dl (8.5-10.1); Creatinine Clr Calc Pharmacy 139.1 ml/min; Est GFR (African American) 106.8 ml/min; Est GFR (Non-African American) 92.2 ml/min; Globulin 3.1 gm/dl (2.5-4.0); Potassium 4.2 mmol/L (3.5-5.1); Total Protein 7.7 gm/dl (6.0-8.3)
[2022-04-06 03:17] LABS: Acetaminophen < 3 ug/ml (10-30); Salicylate < 3.0 mg/dl (3.0-30)
[2022-04-06 03:22] LABS: Appearance Urine Clear (Clear); Bilirubin Urine Negative (Negative); Blood Urine Negative (Negative); Color Urine Yellow; Glucose Urine UA Negative (Negative); Ketones Urine Trace (Negative); Leukocyte Esterase Urine Negative (Negative); Nitrite Urine Negative (Negative); Protein Urine Negative (Negative); Specific Gravity Urine 1.027 (1.000-1.030); Urobilinogen Urine Negative (Negative)
[2022-04-06 03:42] LABS: Amphetamines+Metham, Urine Neg (Neg); Barbiturates, Urine Neg (Neg); Benzodiazepine, Urine Neg (Neg); Cocaine, Urine Neg (Neg); MDMA (Ecstacy), Urine Neg (Neg); Methadone, Urine Neg (Neg); Opiate, Urine Neg (Neg); Phencyclidine, Urine Neg (Neg)
[2022-04-06] MEDS ORDERED: BISMUTH SUBSALICYLATE LIQD 236 ML PO PRN (05:00)
[2022-04-06] MEDS ORDERED: MAGNESIUM HYDROXIDE SUSP 30 ML UDC PO PRN (05:00)
[2022-04-06] MEDS ORDERED: ALUMINUM/MAGNESIUM SUSP 30 ML UDC PO PRN (05:00)
[2022-04-06] MEDS ORDERED: hydrOXYzine HCl 25 MG TAB PO PRN ×2 (05:00)
[2022-04-06] MEDS ORDERED: ACETAMINOPHEN 325 MG TAB PO PRN (05:00)
[2022-04-06] MEDS ORDERED: SODIUM CHLORIDE 0.65% NA SOLN 45 ML (OCEAN) PRN (05:00)
[2022-04-06] MEDS ORDERED: FLUARIX QUADRIVALENT 0.5 ML SYR IM ONE (06:21)
--- NOTE | 2022-04-06 08:37 | History & Physical ---
Date of Service April 06, 2022 Impression / Recommendations Shayy Joe is a 27 year old with a history of bipolar disorder who was admitted for worsening depression with SI with plan. Diagnostically consistent with bipolar affective disorder type II current depressive episode. He is deemed in need of psychiatric hospitalization for diagnostic clarification, safety and stabilization, medication management and development of further coping skills. Discussed medication treatment options in detail. Discussed risks, benefits and alternatives. Patient would like to start and consented to Wellbutrin for depression as well as continuing lamictal and abilify for mood stabilization for BPAD type II. Reviewed side effects including but not limited to: elevated HR/BP, lower seizure threshold, insomnia, decreased appetite with Wellbutrin; potential for fatal rash and need to restart lamictal at lower dose if he ever misses more than 3 days; and movement (TD, NMS), cardiac (QTc prolongation), and metabolic (stroke, insulin resistance) and necessity for fasting lipid and glucose labwork and AIMS done with score of 0. (1) Bipolar disorder, curr episode depressed, severe, w/psychotic features: (2) Bipolar 2 disorder: (3) Anxiety: Plan 04/06/2022: The patient was admitted to the [facility] ([facility]) on q15 min checks (behavioral with suicide precautions) for safety. The patient will participate in group, recreational, and milieu therapies and will be offered additional individual and family sessions as clinically appropriate. -Start Wellbutrin XL 150mg qd tomorrow -Continue lamictal 150mg qd and abilify 15mg HS -fasting lipid panel and glucose tomorrow morning Inventory Assets Strengths: supportive relationships, willing to get treatment Needs: safety and stabilization, medication adjustment, additional coping skills, increased outpatient services Suicide Risk Level Suicide Risk Level: High-Moderate (q15 min suicide checks) (severe depression with SI with plan prior to admission but feels safe in the hospital, able to safety contract and agrees to let nursing/staff know should they develop plan, intent or feel unable to remain safe. ) Risk Factors Assessment Male: Yes : Yes Do You Have Access To A Gun?: No Health Problems: No Mental Health Diagnoses: Yes Substance Use Disorders: No Previous Attempt: No Family History of Suicide: No Previous Psychiatric Hospitalization: Yes Protective Factors Assessment Employed: No Stable Relationships: Yes Supportive Family: Yes Psychiatric History Identifying Data HEATH MARLENA is a 27-year-old man and [employer] student who currently lives off- campus in an apartment with two roommates, has a history of bipolar disorder, and was admitted on 04/06/22 05:00 on a 201 voluntary commitment for worsening depression and SI with plan of walking into traffic. Chief Complaint "I just feel so behind and out of place because of my age and where I am in life". History of Present Illness He presents for psychiatric admission for worsening depression and SI with plan of walking into traffic in the context of multiple psychosocial stressors in cluding academic stress and wanting to graduate after 8 years. He feels the semester started out well but he got sick, missed class and then his depression worsened and he's been getting behind and "last night it just got to be too much". He feels a lot of pressure to finish at the end of this semester and wants to be able to complete his degree and move forward. He describes the stress of falling behind and seeing his peers move forward with their lives while he feels stuck. He was trying to do school work and had a panic attack and then had a downward spiral with intensifying SI with plan. The depression worsened over the last two weeks with symptoms of increased sleep (up to 12 hours per day), increased appetite, decreased motivation, low energy, self-guilt, helplessness, hopelessness. SI started quite abruptly yesterday. He is currently prescribed psychiatric medications of abilify 15mg HS and lamictal 150mg qd (started this last April and it has been working well). Further recent history reviewed and confirmed per documentation by ED psych CM on 04/06/2022: "Pt is extremely flat but cooperative with with assessment and answers questions appropriately. 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 Prior dx of Bipolar D/O. Pt sees Veronica Corcoran at [facility] for therapy and Dr. Cortez ([place], [place]) for psychiatry. He is prescribed Lamictal and Abilify and has been taking them as prescribed. Heath states he has been depressed off and on for the last few weeks but it got especially bad tonight. States it hasn't been this bad in a long time. He is suicidal with a plan and intent to walk into traffic. Denies self-injury, denies AH/VH/HI/Paranoia. Denies prior suicide attempts. States his primary stressor is school where he is "overwhelmed and underperforming". He was most recently inpatient approximately 4 years ago when he was admitted to [address] [place] [address]. States he just moved back here from [place], [place] in February and is looking to start seeing [facility] for psychiatry but has not yet made the call." Psychiatric ROS notable history of hypomania, typically lasts 2 days and he wonders if this was happening this past weekend and then crashed into severe depression. History of psychosis with hearing voices over a year ago during a depressive episode. Endorses history of PTSD but not current symptoms of this, will have a night terror every 3 months or so. No history of self-harm nor eating disorder. Past Psychiatric History Current Psychiatric Diagnosis: depression Outpatient Services: Veronica Corcoran for therapy at [facility], has been seeing a psychiatrist Dr. Cortez at [facility] in [facility]. In past saw Juanita Thao at [facility] and now that he is back in [place] he would like to re-establish care with her. Previous Psych Admissions: [facility] on 302 in summer 2018 for depression Do You Have Access To A Gun?: No History of Previous Suicide Attempt: No Past Medication Trials: hx sertraline, hx Wellbutrin (few years ago, found it wasn't helpful), hx buspar Past Head Trauma/Neuro History History of Concussion/Seizure: Yes (hx two prior concussions, 9th grade and college) in 2019 had been concern for seizure but after evaluation at ED felt to be a panic attack and not a seizure Allergies Allergy/AdvReac Type Severity Reaction Status Date / Time azithromycin [From Zithromax] Allergy Intermediate Hives Verified 04/06/22 14:01 Home Medications Medication Instructions Recorded Confirmed Type aripiprazole 15 mg tablet 15 mg PO HS 04/06/22 04/06/22 History lamotrigine 150 mg tablet 150 mg PO QAM 04/06/22 04/06/22 History Family History Family History of: Depression (maternal grandfather), Anxiety (mother, takes escitalopram) and Alcoholism/Drug Abuse (alcohol use in father, maternal grandparents, mother) Alcohol History Hx of Alcohol Use Over the Past 12 Months: Yes (Monthly or less) AUDIT Total Score: 5 Feels alcohol was an issue in the past, not currently. Currently drinks alcohol socially usually once a month or every other month. Now and then may have 1 beer with dinner. Smoking Use Have You Smoked or Used Tobacco Products in the Last 30 Days: No Smoking Status: Never smoker Substance History Hx of Prescription Med Misuse Over the Past 12 Months: No Hx of Over the Counter Med Misuse Over the Past 12 Months: No Hx of Inhalent Misuse Over the Past 12 Months: No Hx of Organic Substance Use Over the Past 12 Months: No Hx of Illegal Substances/Street Drug Use Over Past 12 Months: No Problems as a Result of Past Substance Use: None Identified No cannabis use in over a year, in past maybe would use a few times per year Personal History Living Arrangements: Apartment Childhood: From [employer], has his mother and step-father. His father suddenly and unexpectedly when he was 9 years old. 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, plans graduate in June with degree in psychology) Marital Status: Single Number Of Children: 0 Beliefs That Will Affect Care: None Current Legal Problems: No Hx Legal Problems: No Hx Traumatic Life Events: Yes (event at age 9 and twice at age 14) Patient History Medical History (Updated 04/06/22 @ 14:15 by Joanna Cai MD) Anxiety Depression Family History Father Pulmonary embolism Other Family history of blood clots Social History Smoking Status: Never smoker Hx Alcohol Use: No Hx Substance Use: No Preferred Language: Kiswahili Communication Ability: Effective Academic Vice President Required: No Beliefs That Will Affect Care: None Feels Safe at Home: Yes Gender Identity: Male Assistive Devices: Glasses Review of Systems Review of Systems: All systems reviewed & are unremarkable except as noted in HPI & below (a little tired) Physical Exam Psychiatric: Orientation: alert and oriented x 3 Apperance: appropriately dressed and appropriately groomed Eye Contact: good eye contact Motor Behavior: no abnormal motor movements Speech: normal rate/rhythm/volume of speech Affect: + depressed affect Mood: + depressed mood and + anxious mood Thought Process: goal directed thought process Thought Content: reality based without delusions Suicidal Thoughts: denies suicidal intent; + reports suicidal thoughts (intermittent thoughts ) and + reports suicidal plan (none for in the hospital, had one prior to admission) Homicidal Thoughts: denies homicidal thoughts Hallucinations: no auditory hallucinations and no visual hallucinations Cognition: recent memory grossly intact, remote memory grossly intact, attention grossly intact and language grossly intact Estimated Intelligence: consistent with education level Insight: + fair insight Judgment: + fair judgement Vital Signs (Past 24 Hours): Last Vital Signs Temp 36.5 C 04/06/22 05:45 Pulse 97 H 04/06/22 05:45 Resp 18 04/06/22 05:45 BP 157/84 H 04/06/22 05:45 Pulse Ox 97 04/06/22 04:41 O2 Del Method Room Air 04/06/22 04:41 Exam Statement: A physical exam was performed in the ED by Dr. Padilla for the purposes of medical clearance. I accept that physical as correct and adequate for the purposes of the inpatient physical exam. Results & Data ([facility]) Laboratory Results Laboratory Results - last 24 hr 04/06/22 04/06/22 04/06/22 02:43 02:43 02:43 WBC 6.83 RBC 5.00 Hgb 15.5 Hct 44.3 MCV 88.6 MCH 31.0 MCHC 35.0 RDW Std Deviation 38.5 RDW Coeff of Brynn 11.9 Plt Count 264 MPV 9.6 Immature Gran % (Auto) 0.1 Neut % (Auto) 56.6 Lymph % (Auto) 27.2 [place] % (Auto) 12.7 Eos % (Auto) 2.8 Baso % (Auto) 0.6 Neut # (Auto) 3.86 Lymph # (Auto) 1.86 [place] # (Auto) 0.87 H Eos # (Auto) 0.19 Baso # (Auto) 0.04 Immature Gran # (Auto) 0.01 Absolute Nucleated RBC 0.02 Nucleated RBC % (auto) 0.3 Sodium 138 Potassium 4.2 Chloride 105 Carbon Dioxide 26 Anion Gap 7 BUN 16 Creatinine 1.10 Est Cr Clr Drug Dosing 139.1 Est GFR ( Amer) 106.8 Est GFR (Non-Af Amer) 92.2 BUN/Creatinine Ratio 14.5 Glucose 106 H Calcium 9.9 Total Bilirubin 0.4 AST 35 ALT 84 H Alkaline Phosphatase 62 Total Protein 7.7 Albumin 4.6 Globulin 3.1 Albumin/Globulin Ratio 1.5 TSH 2.242 Urine Color Urine Appearance Urine pH Ur Specific [place] Urine Protein Urine Glucose (UA) Urine Ketones Urine Blood Urine Nitrite Urine Bilirubin Urine Urobilinogen Ur Leukocyte Esterase Salicylates Urine Opiates Screen Ur Methadone, Qual Acetaminophen Urine Barbiturates Ur Phencyclidine (PCP) U Amphetamin/Meth Scrn MDMA (Ecstasy) Screen U Benzodiazepines Scrn Ur Cocaine Metabolite U Marijuana (THC) Screen Ethyl Alcohol mg/dL SARS-CoV-2, RNA, NAAT 04/06/22 04/06/22 04/06/22 02:43 02:43 02:46 WBC RBC Hgb Hct MCV MCH MCHC RDW Std Deviation RDW Coeff of Brynn Plt Count MPV Immature Gran % (Auto) Neut % (Auto) Lymph % (Auto) [place] % (Auto) Eos % (Auto) Baso % (Auto) Neut # (Auto) Lymph # (Auto) [place] # (Auto) Eos # (Auto) Baso # (Auto) Immature Gran # (Auto) Absolute Nucleated RBC Nucleated RBC % (auto) Sodium Potassium Chloride Carbon Dioxide Anion Gap BUN Creatinine Est Cr Clr Drug Dosing Est GFR ( Amer) Est GFR (Non-Af Amer) BUN/Creatinine Ratio Glucose Calcium Total Bilirubin AST ALT Alkaline Phosphatase Total Protein Albumin Globulin Albumin/Globulin Ratio TSH Urine Color Urine Appearance Urine pH Ur Specific [place] Urine Protein Urine Glucose (UA) Urine Ketones Urine Blood Urine Nitrite Urine Bilirubin Urine Urobilinogen Ur Leukocyte Esterase Salicylates < 3.0 L Urine Opiates Screen Ur Methadone, Qual Acetaminophen < 3 L Urine Barbiturates Ur Phencyclidine (PCP) U Amphetamin/Meth Scrn MDMA (Ecstasy) Screen U Benzodiazepines Scrn Ur Cocaine Metabolite U Marijuana (THC) Screen Ethyl Alcohol mg/dL < 10.0 SARS-CoV-2, RNA, NAAT NEGATIVE 04/06/22 04/06/22 03:03 03:03 WBC RBC Hgb Hct MCV MCH MCHC RDW Std Deviation RDW Coeff of Brynn Plt Count MPV Immature Gran % (Auto) Neut % (Auto) Lymph % (Auto) [place] % (Auto) Eos % (Auto) Baso % (Auto) Neut # (Auto) Lymph # (Auto) [place] # (Auto) Eos # (Auto) Baso # (Auto) Immature Gran # (Auto) Absolute Nucleated RBC Nucleated RBC % (auto) Sodium Potassium Chloride Carbon Dioxide Anion Gap BUN Creatinine Est Cr Clr Drug Dosing Est GFR ( Amer) Est GFR (Non-Af Amer) BUN/Creatinine Ratio Glucose Calcium Total Bilirubin AST ALT Alkaline Phosphatase Total Protein Albumin Globulin Albumin/Globulin Ratio TSH Urine Color Yellow Urine Appearance Clear Urine pH 6.0 Ur Specific [place] 1.027 Urine Protein Negative Urine Glucose (UA) Negative Urine Ketones Trace H Urine Blood Negative Urine Nitrite Negative Urine Bilirubin Negative Urine Urobilinogen Negative Ur Leukocyte Esterase Negative Salicylates Urine Opiates Screen Neg Ur Methadone, Qual Neg Acetaminophen Urine Barbiturates Neg Ur Phencyclidine (PCP) Neg U Amphetamin/Meth Scrn Neg MDMA (Ecstasy) Screen Neg U Benzodiazepines Scrn Neg Ur Cocaine Metabolite Neg U Marijuana (THC) Screen Neg Ethyl Alcohol mg/dL SARS-CoV-2, RNA, NAAT Current Inpatient Medications Current Inpatient Medications: Current Inpatient Medications Acetaminophen (Acetaminophen 325 Mg Tab) 650 mg PO Q4H PRN PRN Reason: Headache or Minor Fever Stop: 05/06/22 04:59 Al Hydrox/Mg Hydrox/Simethicone (Aluminum/Magnesium Susp 30 Ml Udc) 30 ml PO Q4H PRN PRN Reason: GI Upset Stop: 05/06/22 04:59 Bismuth Subsalicylate (Bismuth Subsalicylate Liqd 236 Ml) 15 ml PO PRN PRN PRN Reason: Loose Stool Stop: 05/06/22 04:59 Hydroxyzine HCl (Hydroxyzine Hcl 25 Mg Tab) 25 mg PO Q4H PRN PRN Reason: Anxiety Stop: 05/06/22 04:59 Hydroxyzine HCl (Hydroxyzine Hcl 25 Mg Tab) 50 mg PO HSZ PRN PRN Reason: Insomnia Stop: 05/06/22 04:59 Magnesium Hydroxide (Magnesium Hydroxide Susp 30 Ml Udc) 30 ml PO DAILY PRN PRN Reason: Constipation Stop: 05/06/22 04:59 Sodium Chloride (Sodium Chloride 0.65% Na Soln 45 Ml ([place])) 1 - 2 sprays NA PRN PRN PRN Reason: Nasal Dryness/Congestion Stop: 05/06/22 04:59
[2022-04-06] MEDS: lamoTRIgine 100 MG TAB PO SCH (14:35)
[2022-04-06] MEDS: ARIPiprazole 15 MG TAB PO SCH (21:24)
[2022-04-07 07:54] LABS: Chol HDL Ratio 6.1 (0-5)
--- NOTE | 2022-04-07 09:05 | Psychiatric Progress Note ---
Date of Service April 07, 2022 Impression / Recommendations Shayy Joe is a 27 year old with a history of bipolar disorder who was admitted for worsening depression with SI with plan. Diagnostically consistent with bipolar affective disorder type II current depressive episode. He is deemed in need of psychiatric hospitalization for diagnostic clarification, safety and stabilization, medication management and development of further coping skills. 04/07/2022: Ongoing depression. Blood pressure has been elevated but asymptomatic, he agrees to discuss further with PCP to monitor need for anti- hypertensive if persists over time. Normal glucose, normal LDL but with elevated triglycerides and elevated total cholesterol. He declines drapery cutter machine consult, feels he has been making healthy nutrition changes and agrees to discuss further with PCP. Tolerating initial dose of Wellbutrin well. (1) Bipolar disorder, curr episode depressed, severe, w/psychotic features: (2) Bipolar 2 disorder: (3) Anxiety: Plan 04/07/2022: Continue current medications and tx plan. 04/06/2022: The patient was admitted to the [facility] ([facility] health unit) on q15 min checks (behavioral with suicide precautions) for safety. The patient will participate in group, recreational, and milieu therapies and will be offered additional individual and family sessions as clinically appropriate. -Start Wellbutrin XL 150mg qd tomorrow -Continue lamictal 150mg qd and abilify 15mg HS -fasting lipid panel and glucose tomorrow morning Inventory Assets Strengths: supportive relationships, willing to get treatment Needs: safety and stabilization, medication adjustment, additional coping skills, increased outpatient services Suicide Risk Level Suicide Risk Level: High-Moderate (q15 min suicide checks) (severe depression with SI with plan prior to admission but feels safe in the hospital, able to safety contract and agrees to let nursing/staff know should they develop plan, intent or feel unable to remain safe. 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 Chief Complaint "I feel safe here". Review of Systems Sleep Information Total Hours of Sleep: 7.25 Sleep Comments: Meal Information Percent Meal Consumed - Breakfast: 100 Percent Meal Consumed - Lunch: 100 Percent Meal Consumed - Dinner: 100 Subjective Subjective Patient was seen & assessed and interval progress reviewed with treatment team nursing and social work. Feels his mood is improving a little, finds the groups very helpful and supportive. No side effects from WEllbutrin. Has been better able to concentrate on things like sudoko puzzles and scrabble. Physical Exam Psychiatric Orientation: alert and oriented x 3 Apperance: appropriately dressed and appropriately groomed Eye Contact: good eye contact Motor Behavior: no abnormal motor movements Speech: normal rate/rhythm/volume of speech Affect: + depressed affect Mood: + depressed mood and + anxious mood Thought Process: goal directed thought process Thought Content: reality based without delusions Suicidal Thoughts: denies suicidal thoughts, denies suicidal plan and denies s uicidal intent Homicidal Thoughts: denies homicidal thoughts Hallucinations: no auditory hallucinations and no visual hallucinations Cognition: recent memory grossly intact, remote memory grossly intact, attention grossly intact and language grossly intact Estimated Intelligence: consistent with education level Insight: + fair insight Judgment: + fair judgement Vital Signs (Past 24 Hours) Last Vital Signs Temp 36.6 C 04/07/22 06:45 Pulse 86 04/07/22 06:45 Resp 16 04/07/22 06:45 BP 152/89 H 04/07/22 06:45 Pulse Ox 97 04/06/22 04:41 O2 Del Method Room Air 04/06/22 04:41 Results & Data ([facility]) Laboratory Results Laboratory Results - last 24 hr 04/07/22 07:02 Fasting Glucose 93 Triglycerides 219 H Cholesterol 206 H LDL Cholesterol, Calc 128 VLDL Cholesterol, Calc 44 H HDL Cholesterol 34 Cholesterol/HDL Ratio 6.1 H Current Inpatient Medications Current Inpatient Medications: Current Inpatient Medications Acetaminophen (Acetaminophen 325 Mg Tab) 650 mg PO Q4H PRN PRN Reason: Headache or Minor Fever Stop: 05/06/22 04:59 Al Hydrox/Mg Hydrox/Simethicone (Aluminum/Magnesium Susp 30 Ml Udc) 30 ml PO Q4H PRN PRN Reason: GI Upset Stop: 05/06/22 04:59 Aripiprazole (Aripiprazole 15 Mg Tab) 15 mg PO HS TAMICA Stop: 05/06/22 21:59 Last Admin: 04/06/22 21:24 Dose: 15 mg Bismuth Subsalicylate (Bismuth Subsalicylate Liqd 236 Ml) 15 ml PO PRN PRN PRN Reason: Loose Stool Stop: 05/06/22 04:59 Bupropion HCl (Bupropion Xl 150 Mg Tabcr) 150 mg PO QAM TAMICA Stop: 05/07/22 08:59 Hydroxyzine HCl (Hydroxyzine Hcl 25 Mg Tab) 25 mg PO Q4H PRN PRN Reason: Anxiety Stop: 05/06/22 04:59 Hydroxyzine HCl (Hydroxyzine Hcl 25 Mg Tab) 50 mg PO HSZ PRN PRN Reason: Insomnia Stop: 05/06/22 04:59 Lamotrigine (Lamotrigine 100 Mg Tab) 150 mg PO QAM TAMICA Stop: 05/06/22 13:59 Last Admin: 04/06/22 14:35 Dose: 150 mg Magnesium Hydroxide (Magnesium Hydroxide Susp 30 Ml Udc) 30 ml PO DAILY PRN PRN Reason: Constipation Stop: 05/06/22 04:59 Sodium Chloride (Sodium Chloride 0.65% Na Soln 45 Ml ([place])) 1 - 2 sprays NA PRN PRN PRN Reason: Nasal Dryness/Congestion Stop: 05/06/22 04:59 Mental Health & Subst Abuse Tx Therapist Name of Therapist: [facility]
[2022-04-07] MEDS: lamoTRIgine 100 MG TAB PO SCH (09:16)
[2022-04-07] MEDS: buPROPion XL 150 MG TABCR PO SCH (09:16)
[2022-04-07] MEDS: ARIPiprazole 15 MG TAB PO SCH (21:14)
[2022-04-08] MEDS: lamoTRIgine 100 MG TAB PO SCH (08:42)
[2022-04-08] MEDS: buPROPion XL 150 MG TABCR PO SCH (08:43)
--- NOTE | 2022-04-08 08:59 | Psychiatric Progress Note ---
Date of Service April 08, 2022 Impression / Recommendations Shayy Joe is a 27 year old with a history of bipolar disorder who was admitted for worsening depression with SI with plan. Diagnostically consistent with bipolar affective disorder type II current depressive episode. He is deemed in need of psychiatric hospitalization for diagnostic clarification, safety and stabilization, medication management and development of further coping skills. 04/08/2022: Mood improving, no SI. Powerful family meeting which he feels will allow him to start to build trust again with his relationship with his mom. Still anxious about stress of classes but feeling more prepared and confident about catching up on school work. Tolerating Wellbutrin. No signs of hypomania/sleep changes with addition of Wellbutrin. (1) Bipolar disorder, curr episode depressed, severe, w/psychotic features: (2) Bipolar 2 disorder: (3) Anxiety: Plan 04/08/2022: Continue current medications and tx plan. 04/07/2022: Continue current medications and tx plan. 04/06/2022: The patient was admitted to the [facility] ([facility]) on q15 min checks (behavioral with suicide precautions) for safety. The patient will participate in group, recreational, and milieu therapies and will be offered additional individual and family sessions as clinically appropriate. -Start Wellbutrin XL 150mg qd tomorrow -Continue lamictal 150mg qd and abilify 15mg HS -fasting lipid panel and glucose tomorrow morning Inventory Assets Strengths: supportive relationships, willing to get treatment Needs: safety and stabilization, medication adjustment, additional coping skills, increased outpatient services Suicide Risk Level Suicide Risk Level: Moderate (q15 min suicide checks) (severe depression with SI with plan prior to admission but mood improving, feels safe in the hospital, able to safety contract and agrees to let nursing/staff know should they develop plan, intent or feel unable to remain safe. 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 Chief Complaint "I'm emotionally relieved". Review of Systems Sleep Information Total Hours of Sleep: 7 Meal Information Percent Meal Consumed - Breakfast: 100 Percent Meal Consumed - Lunch: 100 Percent Meal Consumed - Dinner: 100 Subjective Subjective Patient was seen & assessed and interval progress reviewed with treatment team nursing and social work. Anxious about school but feeling more hopeful. Attending groups. Feels Wellbutrin is helping a lot with concentration and his mood. [place] very relieved after having two family support meetings with his mother. After the second call his mother acknowledged his past trauma and how her initial response when he was young impacted their relationship. He feels they were able to take a big step forward in his trust of her and is now willing to do outpatient family therapy moving forward. He notes "it felt so good to hear". Physical Exam Psychiatric Orientation: alert and oriented x 3 Apperance: appropriately dressed and appropriately groomed Eye Contact: good eye contact Motor Behavior: no abnormal motor movements Speech: normal rate/rhythm/volume of speech Affect: euthymic affect Mood: + depressed mood and + anxious mood Thought Process: goal directed thought process Thought Content: reality based without delusions Suicidal Thoughts: denies suicidal thoughts, denies suicidal plan and denies suicidal intent Homicidal Thoughts: denies homicidal thoughts Hallucinations: no auditory hallucinations and no visual hallucinations Cognition: recent memory grossly intact, remote memory grossly intact, attention grossly intact and language grossly intact Estimated Intelligence: consistent with education level Insight: + fair insight Judgment: + fair judgement Vital Signs (Past 24 Hours) Last Vital Signs Temp 36.7 C 04/08/22 06:38 Pulse 59 L 04/08/22 06:38 Resp 18 04/08/22 06:38 BP 141/89 H 04/08/22 06:39 Pulse Ox 97 04/06/22 04:41 O2 Del Method Room Air 04/06/22 04:41 Results & Data ([facility]) Current Inpatient Medications Current Inpatient Medications: Current Inpatient Medications Acetaminophen (Acetaminophen 325 Mg Tab) 650 mg PO Q4H PRN PRN Reason: Headache or Minor Fever Stop: 05/06/22 04:59 Al Hydrox/Mg Hydrox/Simethicone (Aluminum/Magnesium Susp 30 Ml Udc) 30 ml PO Q4H PRN PRN Reason: GI Upset Stop: 05/06/22 04:59 Aripiprazole (Aripiprazole 15 Mg Tab) 15 mg PO HS TAMICA Stop: 05/06/22 21:59 Last Admin: 04/07/22 21:14 Dose: 15 mg Bismuth Subsalicylate (Bismuth Subsalicylate Liqd 236 Ml) 15 ml PO PRN PRN PRN Reason: Loose Stool Stop: 05/06/22 04:59 Bupropion HCl (Bupropion Xl 150 Mg Tabcr) 150 mg PO QAM TAMICA Stop: 05/07/22 08:59 Last Admin: 04/08/22 08:43 Dose: 150 mg Hydroxyzine HCl (Hydroxyzine Hcl 25 Mg Tab) 25 mg PO Q4H PRN PRN Reason: Anxiety Stop: 05/06/22 04:59 Hydroxyzine HCl (Hydroxyzine Hcl 25 Mg Tab) 50 mg PO HSZ PRN PRN Reason: Insomnia Stop: 05/06/22 04:59 Lamotrigine (Lamotrigine 100 Mg Tab) 150 mg PO QAM TAMICA Stop: 05/06/22 13:59 Last Admin: 04/08/22 08:42 Dose: 150 mg Magnesium Hydroxide (Magnesium Hydroxide Susp 30 Ml Udc) 30 ml PO DAILY PRN PRN Reason: Constipation Stop: 05/06/22 04:59 Sodium Chloride (Sodium Chloride 0.65% Na Soln 45 Ml ([place])) 1 - 2 sprays NA PRN PRN PRN Reason: Nasal Dryness/Congestion Stop: 05/06/22 04:59 Mental Health & Subst Abuse Tx Psychiatrist Name of Psychiatrist: [facility]- Dr. Cortez Psychiatrist's Date Of Appointment With Psychiatric Provider: 04/22/2022 Time of Appointment with Psychiatrist: 2:30pm Psychiatric Appointment Comment: link will be sent via text Therapist Name of Therapist: [facility]- Radha Corcoran Therapist's Date of Therapist Appointment: 04/12/2022 Time of Therapist Appointment: 3pm Therapy Appointment Comment: [address], [place] [address] Senior [employer] Engineer Name of Senior Linux Unix Engineer: [employer] [facility] [employer] Phone Number for Senior Linux [employer] Engineer: [phone] Case Management Appointment Comment: Zoom link will be sent to [employer] email Post Discharge Appointments Primary Care Physician Name Of Family Doctor/PCP: [facility] Date of Future Appointment with PCP: 04/13/22 Time of Appointment with PCP: 10:40am Provider Appointment Comment[facility] [place] [id number]
[2022-04-08] MEDS: ARIPiprazole 15 MG TAB PO SCH (21:01)
--- NOTE | 2022-04-09 08:47 | Discharge Summary ---
Date of Service April 09, 2022 History of Present Illness He presents for psychiatric admission for worsening depression and SI with plan of walking into traffic in the context of multiple psychosocial stressors including academic stress and wanting to graduate after 8 years. He feels the semester started out well but he got sick, missed class and then his depression worsened and he's been getting behind and "last night it just got to be too much". He feels a lot of pressure to finish at the end of this semester and wants to be able to complete his degree and move forward. He describes the stress of falling behind and seeing his peers move forward with their lives while he feels stuck. He was trying to do school work and had a panic attack and then had a downward spiral with intensifying SI with plan. The depression worsened over the last two weeks with symptoms of increased sleep (up to 12 hours per day), increased appetite, decreased motivation, low energy, self-guilt, helplessness, hopelessness. SI started quite abruptly yesterday. He is currently prescribed psychiatric medications of abilify 15mg HS and lamictal 150mg qd (started this last April and it has been working well). Further recent history reviewed and confirmed per documentation by ED psych CM on 04/06/2022: "Pt is extremely flat but cooperative with with assessment and answers questions appropriately. 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 Prior dx of Bipolar D/O. Pt sees Veronica Corcoran at [facility] for therapy and Dr. Cortez ([facility]) for psychiatry. He is prescribed Lamictal and Abilify and has been taking them as prescribed. Heath states he has been depressed off and on for the last few weeks but it got especially bad tonight. States it hasn't been this bad in a long time. He is suicidal with a plan and intent to walk into traffic. Denies self-injury, denies AH/VH/HI/Paranoia. Denies prior suicide attempts. States his primary stressor is school where he is "overwhelmed and underperforming". He was most recently inpatient approximately 4 years ago when he was admitted to [address] [place] [address]. States he just moved back here from [place] in February and is looking to start seeing [facility] for psychiatry but has not yet made the call." Psychiatric ROS notable history of hypomania, typically lasts 2 days and he wonders if this was happening this past weekend and then crashed into severe depression. History of psychosis with hearing voices over a year ago during a depressive episode. Endorses history of PTSD but not current symptoms of this, will have a night terror every 3 months or so. No history of self-harm nor eating disorder. Physical Exam Vital Signs (Past 24 Hours) Last Vital Signs Temp 36.6 C 04/09/22 06:39 Pulse 81 04/09/22 06:40 Resp 16 04/09/22 06:39 BP 134/89 04/09/22 06:40 Pulse Ox 97 04/06/22 04:41 O2 Del Method Room Air 04/06/22 04:41 See admission H&P and DOD summary. Principal Diagnosis Bipolar Affective Disorder Type II, current depressive episode Psychiatric Data See daily stay summary. In short, patient was engaged with the social/therapeutic milieu of the unit, safety was maintained and the patient was cooperative with care. Medication changes included initiation of Wellbutrin 150mg XL daily for depression and they tolerated this well. He was continued on prior to admission Abilify for mood stabilization and fasting glucose, fasting lipid profile, and weight were preformed and notable for elevated triglycerides and elevated total cholesterol. Recommend repeat fasting glucose and fasting lipid profile annually or if symptoms arise recommend checking BP, EKG, prolactin level as clinically indicated or relevant. He agrees to discuss this further with his primary care provider and notes he has been making recent healthy changes to his diet. His blood pressure was elevated at times during admission though improved throughout his stay and normalized even after the addition of Wellbutrin XL. Discussed importance of ongoing blood pressure monitoring by his primary care provider and he agrees to follow-up with them regarding this. Two family sessions were held and safety plan was completed pr ior to discharge. He actively and insightfully participated in safety planning and in discussions about ways to seek support and recognizing warning signs and utilizing coping skills. Reviewed mobile apps that could be used for additional ways to have their safety plan and contacts easily available should thoughts of SI re-emerge in the future. Reviewed importance of seeking emergency care should SI intensify, worsen or should they feel unsafe in the future which they agree to do. On the day of discharge he stated his mood was "good", "ready to go" and remained future-oriented including spending time with his mom today, hanging out with his friends this weekend, playing trivia on Tuesday night, getting back to classes, catching up on homework and engaging in aftercare appointments for psy chiatry, therapy and [employer] student care and advocacy. Day of Discharge Assessment Today the patient voices readiness for discharge. They note improvement in mood and anxiety. They deny thoughts of harm to self or others. Thoughts are organized and they are clinically improved from admission. There is no evidence of psychosis. They improved in the hospital with support and medication adjustments. They agree to take medications as prescribed and keep follow-up appointments. At the time of the discharge they are deemed to be stable and appropriate for outpatient level of care. They are not deemed to be at imminent risk of harm to self or others. They are aware of emergency and crisis services. Knows to call 911 or go to nearest emergency care center if in a crisis which cannot be handled as an outpatient. Transition of Care Transition Of Care Record: was reviewed with the patient Advance Directives Advance Directives Information Provided: Yes Advance Directives: No Mental Health Advance Directive: No Advance Directives on File: No Living Will: No Power of Workers Compensation Claims Examiner: No Advance Directives Reason:: Declines as Mental Health Visit. Suicide Risk Level Suicide Risk Level Comments: Acute risk is low given improvement in mood and denial of SI, lack of access to lethal means, improvement in energy levels/motivation/concentration, hopefulness. Chronic risk is low to moderate given some non-modifiable risk factors: psychiatric co-morbid diagnoses, periods of impulsivity, prior psychiatric hospitalizations, mood disorder, childhood trauma but also with multiple protective factors including: student, good social support, sense of responsibility to family and social supports, outpatient care in place, positive coping skills, positive problem solving, good capacity to establish therapeutic alliance, willingness to engage with treatment, capacity for self-observation. Counseled on ways to reduce acute and chronic risk including engaging with outpatient providers, using safety plan if needed, utilizing supports, taking medication, and using coping skills. Modifiable risk factors of SI and depression were addressed during hospitalization through development of new coping skills, family meetings, safety planning, and medication adjustments. Risk Factors Assessment Male: Yes : Yes Do You Have Access To A Gun?: No Health Problems: No Mental Health Diagnoses: Yes Substance Use Disorders: No Previous Attempt: No Family History of Suicide: No Previous Psychiatric Hospitalization: Yes Hopelessness: No Protective Factors Assessment Employed: No Stable Relationships: Yes Supportive Family: Yes Good Rapport with Provider: Yes Discharge Data Lab Results 04/06/22 04/06/22 04/06/22 02:43 02:43 02:43 WBC 6.83 RBC 5.00 Hgb 15.5 Hct 44.3 MCV 88.6 MCH 31.0 MCHC 35.0 RDW Std Deviation 38.5 RDW Coeff of Brynn 11.9 Plt Count 264 MPV 9.6 Immature Gran % (Auto) 0.1 Neut % (Auto) 56.6 Lymph % (Auto) 27.2 [place] % (Auto) 12.7 Eos % (Auto) 2.8 Baso % (Auto) 0.6 Neut # (Auto) 3.86 Lymph # (Auto) 1.86 [place] # (Auto) 0.87 H Eos # (Auto) 0.19 Baso # (Auto) 0.04 Immature Gran # (Auto) 0.01 Absolute Nucleated RBC 0.02 Nucleated RBC % (auto) 0.3 Sodium 138 Potassium 4.2 Chloride 105 Carbon Dioxide 26 Anion Gap 7 BUN 16 Creatinine 1.10 Est Cr Clr Drug Dosing 139.1 Est GFR ( Amer) 106.8 Est GFR (Non-Af Amer) 92.2 BUN/Creatinine Ratio 14.5 Glucose 106 H Fasting Glucose Calcium 9.9 Total Bilirubin 0.4 AST 35 ALT 84 H Alkaline Phosphatase 62 Total Protein 7.7 Albumin 4.6 Globulin 3.1 Albumin/Globulin Ratio 1.5 Triglycerides Cholesterol LDL Cholesterol, Calc VLDL Cholesterol, Calc HDL Cholesterol Cholesterol/HDL Ratio TSH 2.242 Urine Color Urine Appearance Urine pH Ur Specific [place] Urine Protein Urine Glucose (UA) Urine Ketones Urine Blood Urine Nitrite Urine Bilirubin Urine Urobilinogen Ur Leukocyte Esterase Salicylates Urine Opiates Screen Ur Methadone, Qual Acetaminophen Urine Barbiturates Ur Phencyclidine (PCP) U Amphetamin/Meth Scrn MDMA (Ecstasy) Screen U Benzodiazepines Scrn Ur Cocaine Metabolite U Marijuana (THC) Screen Ethyl Alcohol mg/dL SARS-CoV-2, RNA, NAAT 04/06/22 04/06/22 04/06/22 02:43 02:43 02:46 WBC RBC Hgb Hct MCV MCH MCHC RDW Std Deviation RDW Coeff of Brynn Plt Count MPV Immature Gran % (Auto) Neut % (Auto) Lymph % (Auto) [place] % (Auto) Eos % (Auto) Baso % (Auto) Neut # (Auto) Lymph # (Auto) [place] # (Auto) Eos # (Auto) Baso # (Auto) Immature Gran # (Auto) Absolute Nucleated RBC Nucleated RBC % (auto) Sodium Potassium Chloride Carbon Dioxide Anion Gap BUN Creatinine Est Cr Clr Drug Dosing Est GFR ( Amer) Est GFR (Non-Af Amer) BUN/Creatinine Ratio Glucose Fasting Glucose Calcium Total Bilirubin AST ALT Alkaline Phosphatase Total Protein Albumin Globulin Albumin/Globulin Ratio Triglycerides Cholesterol LDL Cholesterol, Calc VLDL Cholesterol, Calc HDL Cholesterol Cholesterol/HDL Ratio TSH Urine Color Urine Appearance Urine pH Ur Specific [place] Urine Protein Urine Glucose (UA) Urine Ketones Urine Blood Urine Nitrite Urine Bilirubin Urine Urobilinogen Ur Leukocyte Esterase Salicylates < 3.0 L Urine Opiates Screen Ur Methadone, Qual Acetaminophen < 3 L Urine Barbiturates Ur Phencyclidine (PCP) U Amphetamin/Meth Scrn MDMA (Ecstasy) Screen U Benzodiazepines Scrn Ur Cocaine Metabolite U Marijuana (THC) Screen Ethyl Alcohol mg/dL < 10.0 SARS-CoV-2, RNA, NAAT NEGATIVE 04/06/22 04/06/22 04/07/22 03:03 03:03 07:02 WBC RBC Hgb Hct MCV MCH MCHC RDW Std Deviation RDW Coeff of Brynn Plt Count MPV Immature Gran % (Auto) Neut % (Auto) Lymph % (Auto) [place] % (Auto) Eos % (Auto) Baso % (Auto) Neut # (Auto) Lymph # (Auto) [place] # (Auto) Eos # (Auto) Baso # (Auto) Immature Gran # (Auto) Absolute Nucleated RBC Nucleated RBC % (auto) Sodium Potassium Chloride Carbon Dioxide Anion Gap BUN Creatinine Est Cr Clr Drug Dosing Est GFR ( Amer) Est GFR (Non-Af Amer) BUN/Creatinine Ratio Glucose Fasting Glucose 93 Calcium Total Bilirubin AST ALT Alkaline Phosphatase Total Protein Albumin Globulin Albumin/Globulin Ratio Triglycerides 219 H Cholesterol 206 H LDL Cholesterol, Calc 128 VLDL Cholesterol, Calc 44 H HDL Cholesterol 34 Cholesterol/HDL Ratio 6.1 H TSH Urine Color Yellow Urine Appearance Clear Urine pH 6.0 Ur Specific [place] 1.027 Urine Protein Negative Urine Glucose (UA) Negative Urine Ketones Trace H Urine Blood Negative Urine Nitrite Negative Urine Bilirubin Negative Urine Urobilinogen Negative Ur Leukocyte Esterase Negative Salicylates Urine Opiates Screen Neg Ur Methadone, Qual Neg Acetaminophen Urine Barbiturates Neg Ur Phencyclidine (PCP) Neg U Amphetamin/Meth Scrn Neg MDMA (Ecstasy) Screen Neg U Benzodiazepines Scrn Neg Ur Cocaine Metabolite Neg U Marijuana (THC) Screen Neg Ethyl Alcohol mg/dL SARS-CoV-2, RNA, NAAT Hospital Course (1) Bipolar affective disorder, depressed, severe: (2) Bipolar 2 disorder: (3) Anxiety: Plan 04/08/2022: Continue current medications and tx plan. 04/07/2022: Continue current medications and tx plan. 04/06/2022: The patient was admitted to the [facility] ([facility] mental health unit) on q15 min checks (behavioral with suicide precautions) for safety. The patient will participate in group, recreational, and milieu therapies and will be offered additional individual and family sessions as clinically appropriate. -Start Wellbutrin XL 150mg qd tomorrow -Continue lamictal 150mg qd and abilify 15mg HS -fasting lipid panel and glucose tomorrow morning Mental Health & Subst Abuse Tx Psychiatrist Name of Psychiatrist: [facility]- Dr. Cortez Psychiatrist's Date Of Appointment With Psychiatric Provider: 04/22/2022 Time of Appointment with Psychiatrist: 2:30pm Psychiatric Appointment Comment: link will be sent via text Therapist Name of Therapist: [facility]- Radha Corcoran Therapist's Date of Therapist Appointment: 04/12/2022 Time of Therapist Appointment: 3pm Therapy Appointment Comment: [facility] [place] [address] Manager Cost Name of Manager Cost: Student Care and Advocacy Phone Number for Manager Cost: [phone] Date of Appointment with Manager Cost: 04/12/22 Time of Appointment with Manager Cost: 11:15am Case Management Appointment Comment: Zoom link will be sent to [employer] email Post Discharge Appointments Primary Care Physician Name Of Family Doctor/PCP: [facility]- Dr. [facility] Date of Future Appointment with PCP: 04/13/22 Time of Appointment with PCP: 10:40am Provider Appointment Comment: [facility] [address] Other #1: Name of Aftercare Appointment: [facility] Phone Number of Aftercare Appointment: [phone] Time of Aftercare Appointment: please contact directly to re-establish services Aftercare Appointment Comment: [address] [place] [address] Discharge Plan Discharge Items Patient Disposition: Home - Self-Care Reason For Visit: DEPRESSION, SI Discharge Diagnosis: Bipolar Affective Disorder Type II, current depressive episode Activity: Resume your previous activity Non-emergency contact: Primary Care Provider, Psychiatrist and Therapist Call non-emergency contact if: you have any medication questions and your symptoms worsen Follow-up/Referrals: [facility] [Primary Care Provider] - Diet: Regular Addtl Attending Provider Instructions: Optional mobile apps we discussed: -Suicide safety plan -Virtual Hope Box SPECIAL CARE INSTRUCTIONS: 1. Follow through with your scheduled aftercare appointments. If unable to keep an appointment, please call to reschedule. 2. Take your medication only as prescribed. Medication should not be changed or stopped without the approval of your doctor. In the event of worsening symptoms or concerns about side effects, contact your doctor immediately. 3. Utilize new healthy coping skills, anger management skills, and stress management skills learned during your hospitalization. Journal feelings and process them with a support person. Identify stressors or situations that may result in relapse, deterioration or inappropriate behaviors and develop a plan to deal with those issues. 4. If your coping skills are ineffective and you are in crisis, contact your outpatient providers for direction. If unable to reach your providers, please call the [facility] CRISIS LINE AT , go to the [facility] walk-in center at [address], [address], [place], or go to the closest Emergency Room. 5. Avoid alcohol and un-prescribed drugs. 6. You have been provided with the Mental Health Advance Directives Pamphlet for your review. 7. Your condition is stable for discharge to outpatient level of care, but recovery is an ongoing process. Ifthoughts to harm yourself or others return, follow the safety plan developed during your stay. Planning for a safe return home includes securing weapons. Our treatment team recommends weaponsbe removed from the home until your outpatient provider reassesses your progress. In rare cases where the items themselvescannot be removed, guns and ammunitionshould be secured separatelyand keys stored by a reliable personoutside of the home. If you were admitted on an involuntary commitment, the police or other legal authorities may be involved in this process. AFTERCARE APPOINTMENTS: * Please call your insurance company prior to your scheduled appointment to confirm your aftercare providers are covered. Take your insurance information to your appointments. WHO TO CALL AND WHEN: Medical Emergencies: For questions or emergencies related to your hospital stay, please contact the Inpatient Behavioral Health Unit at [phone]. A psychiatric social worker is on-call 06/09 for the Behavioral Health Unit for emergencies At any time you feel your situation is an emergency, you may also call 911 immediately. Pending Studies at Discharge: No Stand-Alone Forms: My [facility] Medications and DC Order Prescriptions: New bupropion HCl 150 mg Tablet Extended Release 24 Hr 150 mg PO QAM 30 Days Qty: 30 0RF Continued lamotrigine 150 mg tablet 150 mg PO QAM Rx Instructions: PER PT "TAKE QAM", PER EXT MED HX BID. aripiprazole 15 mg tablet 15 mg PO HS Discharge Orders: Discharge Order (Routine); Ordered 04/09/22 Ordered By: Joanna Cai Admission Data Admit Date/Time: 04/06/22 05:00 Attending Provider: Joanna Cai Admit Provider: Joanna Cai Primary Care Provider: [facility] Other Interventions: Discharge Summary Assessment (RN) Last Done: 04/09/22 12:16 PSY Interdisciplinary Discharge Planning Last Done: 04/09/22 12:18 Coding Level of Care Code 23887 D/C day mgmt > 30 min Diagnoses Bipolar affective disorder, depressed, severe F31.4 Bipolar 2 disorder F31.81 Anxiety F41.9 Time Spent (min) 32
[2022-04-09] MEDS: buPROPion XL 150 MG TABCR PO SCH (08:53)
[2022-04-09] MEDS: lamoTRIgine 100 MG TAB PO SCH (08:53)
== END 2022-04-09 12:25 | disposition home or self-care (01) | DRG 885 ==
LOC: ED 02:21 → 3S 05:00